=== PATIENT | female | born 1970 ===

== ENCOUNTER 2025-04-02 08:00 | Inpatient (IN) | payer OTHER ==
[~2025-04-02] VITALS: Ht 167.6 cm; Wt 47.2 kg
[2025-04-02] MEDS ORDERED: NORVASC2.5 M1 PO (09:20)
[2025-04-02] MEDS ORDERED: LOSARTAN POTAS100 MG PO (09:20)
[2025-04-02] MEDS ORDERED: PEPCID AC20 MG PO (09:20)
[2025-04-02] MEDS ORDERED: LIPITOR20 MG PO (09:20)
[2025-04-02] MEDS ORDERED: MULTIPLE VITAM1 EAC2 PO (09:21)
[2025-04-02 09:27] VITALS: BP 98/73
[2025-04-02 09:58] LABS: BASO % 0.6 % (0.1-1.2); EOS # 0.10 (0.04-0.54); EOS % 1.0 % (0.7-7.0); LYMPH # 1.91 (1.18-3.74); LYMPH % 19.5 % (19.3-53.1); MEAN PLATELET VOLUME 11.50 fl (9.4-12.4); MONO # 0.77 (0.24-0.82); MONO % 7.9 % (4.7-12.5); NEUT # 6.89 (1.56-6.13); NEUT % 70.4 % (34.0-71.1); RED CELL DISTRIBUTION WIDTH 14.6 % (11.6-14.4)
[2025-04-02 10:16] LABS: URINE APPEARANCE Cloudy; URINE BILIRRUBIN Negative (NEGATIVE); URINE BLOOD Negative; URINE COLOR Yellow; URINE GLUCOSE Negative (NEGATIVE); URINE KETONE Trace (NEGATIVE); URINE LEUKOCYTE Negative; URINE NITRATE Negative; URINE PROTEIN Negative (NEGATIVE); URINE UROBILINOGEN 1.0 E.U./dl
[2025-04-02 10:20] LABS: COVID-19 AG NEGATIVE (NEGATIVE)
[2025-04-02 10:21] LABS: URINE BACTERIA 5420.2 uL (0.0-1933); URINE EPITHELIAL CELLS 100.9 uL (0.0-38.8); URINE RBC 30.2 uL (0.0-20.8); URINE WBC 12.9 uL (0.0-23.2)
[2025-04-02 10:39] LABS: ALT/SGPT 29.0 U/L (12-78); AST/SGOT 21.0 U/L (15-37); BILIRUBIN TOTAL 0.52 mg/dL (0.3-1.2); BUN CREA RATIO 22.0 (7.0-25.0); CREATININE SERUM 0.78 mg/dL (0.55-1.02); GFR 76.4; GLOBULINA 3.7 G/DL (2.4-3.5); GLUCOSE FASTING 106.0 mg/dL (65-100); OSMOLALITY SERUM 285.0 MOSM/KG (275-295)
[2025-04-02 10:40] LABS: URINE CAST 0.87 uL (0.0-1.40)
[2025-04-02 10:43] LABS: INR 1.04
[2025-04-10] MEDS ORDERED: TRANEXAMIC ACID 100MG/1ML (1000MG) AMPUL ONE (12:13)
[2025-04-10] MEDS ORDERED: CEFAZOLIN SODIUM 1,000 MG VIAL ONE (12:16)
[2025-04-10] MEDS ORDERED: VANCOMYCIN HCL 1,000 MG VIAL ONE (12:56)
[2025-04-10] MEDS ORDERED: BUPIVACAINE HCL/MPF 0.5% 30ML VIAL ONE (12:56)
[2025-04-10] MEDS ORDERED: KETOROLAC TROMETHAMINE 60 MG VIAL IM ONE (12:56)
[2025-04-10] MEDS ORDERED: LIDOCAINE HCL 1%/EPINEPHRINE 20ML VIAL IJ ONE (12:57)
[2025-04-10] MEDS ORDERED: ISOPROPYL ALCOHOL 30 ML OUNCE TOP ONE (13:16)
[2025-04-10] MEDS ORDERED: SODIUM CHLORIDE 0.45 % 1,000 ML IV SCH (19:45)
[2025-04-10] MEDS ORDERED: ONDANSETRON HCL 2 MG/ML VIAL IV PRN (19:45)
[2025-04-10] MEDS ORDERED: OxyCODONE HCL 5 MG TABLET (ROXICODONE) PO PRN (19:45)
[2025-04-10] MEDS ORDERED: MORPHINE SULFATE 4 MG/ML CARTRIDGE IV PRN (19:45)
[2025-04-10 20:15] VITALS: BP 103/68; O2SAT 95
[2025-04-11] MEDS ORDERED: ACETAMINOPHEN 500 MG GEL..CAP PO SCH
[2025-04-11 00:30] VITALS: BP 105/65; O2SAT 99
[2025-04-11] MEDS ORDERED: CEFAZOLIN SODIUM 1,000 MG VIAL IV SCH (01:00)
[2025-04-11] MEDS ORDERED: GABAPENTIN 300 MG CAPSULE PO SCH (01:00)
[2025-04-11 08:07] LABS: BASO % 0.4 % (0.1-1.2); EOS # 0.10 (0.04-0.54); EOS % 1.0 % (0.7-7.0); LYMPH # 1.79 (1.18-3.74); LYMPH % 17.0 % (19.3-53.1); MEAN PLATELET VOLUME 11.80 fl (9.4-12.4); MONO # 1.01 (0.24-0.82); MONO % 9.6 % (4.7-12.5); NEUT # 7.52 (1.56-6.13); NEUT % 71.5 % (34.0-71.1); RED CELL DISTRIBUTION WIDTH 15.0 % (11.6-14.4)
[2025-04-11] MEDS ORDERED: PERCOCET 5-3251 EACH PO (08:59)
[2025-04-11] MEDS ORDERED: DUI500 PO (08:59)
[2025-04-11] MEDS ORDERED: ELIQUIS2.5 MG PO (08:59)
[2025-04-11] MEDS ORDERED: NASAL MIST126 ML NASAL (08:59)
[2025-04-11] MEDS ORDERED: APIXABAN 2.5 MG TABLET PO SCH (09:00)
[2025-04-11] MEDS ORDERED: SENNOSIDES 1 TAB TABLET PO SCH (09:00)
[2025-04-11 09:26] VITALS: BP 101/66; O2SAT 95
[2025-04-11 13:06] LABS: COVID-19 AG NEGATIVE (NEGATIVE)
[2025-04-11 15:30] VITALS: BP 114/75; O2SAT 95
[2025-04-12 01:53] VITALS: BP 135/80; O2SAT 96
[2025-04-12 06:56] LABS: BASO % 0.3 % (0.1-1.2); EOS # 0.11 (0.04-0.54); EOS % 0.8 % (0.7-7.0); LYMPH # 2.01 (1.18-3.74); LYMPH % 14.6 % (19.3-53.1); MEAN PLATELET VOLUME 12.10 fl (9.4-12.4); MONO # 1.52 (0.24-0.82); MONO % 11.0 % (4.7-12.5); NEUT # 10.03 (1.56-6.13); NEUT % 72.7 % (34.0-71.1); RED CELL DISTRIBUTION WIDTH 15.3 % (11.6-14.4)
[2025-04-12] MEDS ORDERED: IRON FUM,PS/FOLIC ACID/VITC/B3 1 CAP CAPSULE PO SCH (09:00)
[2025-04-12] MEDS ORDERED: TAMSULOSIN HCL 0.4 MG CAP PO SCH (09:00)
[2025-04-12] MEDS ORDERED: AMLODIPINE BESYLATE 2.5 MG TABLET PO SCH (09:00)
[2025-04-12] MEDS ORDERED: LOSARTAN POTASSIUM 100 MG TABLET PO SCH (09:00)
[2025-04-12 16:00] VITALS: BP 154/96; O2SAT 97
== END 2025-04-12 21:30 | disposition home or self-care (01) | DRG 470 ==
LOC: SURH 04-10 08:00 → O/R 04-10 10:00 → SURG 04-10 17:15
PROVIDERS: ADMIT Orthopaedic Surgery; ATTEND Orthopaedic Surgery
PROC: 0MNP0ZZ Release Left Knee Bursa and Ligament, Open Approach (ICD-10-PCS; 2025-04-10)
PROC: 0SRD0JZ Replacement of Left Knee Joint with Synthetic Substitute, Open Approach (ICD-10-PCS; principal; 2025-04-10 08:00)
DX: M17.12 Unilateral primary osteoarthritis, left knee (principal); I10 Essential (primary) hypertension